=== PATIENT | female | born 1995 | race Caucasian/White ===

== ENCOUNTER 2022-11-30 19:59 | Outpatient (OUT) | payer OTHER, SELFPAY | END 2022-11-30 20:00 | disposition home or self-care (01) | LOC: SLEEP 19:59 | PROVIDERS: PCP Family Medicine; Visit Provider Family Medicine | DX: G47.33 Obstructive sleep apnea (adult) (pediatric) (principal) | CPT/HCPCS: 95810 ==

== ENCOUNTER 2023-01-03 21:00 | Outpatient (OUT) | payer OTHER, SELFPAY | END 2023-01-03 21:01 | LOC: SLEEP 01-12 15:34 | PROVIDERS: PCP Family Medicine; Visit Provider Family Medicine | DX: G47.33 Obstructive sleep apnea (adult) (pediatric) (principal) | CPT/HCPCS: 95811 ==

== ENCOUNTER 2023-04-27 11:08 | Outpatient (OUT) | payer OTHER, SELFPAY ==
--- OUTSIDE RECORDS SUMMARY | 2023-04-27 11:23 | XMS_ITS | CCD ---
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 Name Role Phone Elyse Alvarez Primary Care Provider [phone] ELYSE ALVAREZ Primary Care Unavailable Medications Current Medications Medication Drug Class(es) Dates Sig (Normalized) Sig (Original) acetaminophen 325 mg oral tablet (4 sources) take 2 tablets by mouth every six hours as needed for pain acetaminophen (TYLENOL) 325 MG tablet Take 650 mg by mouth every 6 hours as needed for Pain 0 Active betamethasone 0.5 mg/ml / clotrimazole 10 mg/ml topical cream (2 sources) Azole Antifungal, Corticosteroid Start: 03-06-2019 clotrimazole-betam ethasone (LOTRISONE) 1-0.05 % cream Indications: Acute vaginitis Apply topically 2 times daily. 45 g 1 03/06/2019 Active docusate sodium 100 mg oral capsule (3 sources) Start: 08-23-2018 take 1 capsule by mouth twice daily as needed for constipation docusate sodium (COLACE) 100 MG capsule Indications: Constipation, unspecified constipation type Take 1 capsule by mouth 2 times daily as needed for Constipation 60 capsule 1 08/23/2018 Active norethindrone 0.35 mg oral tablet (1 source) Start: 07-17-2019 take 1 tablet by mouth once daily norethindrone (ORTHO MICRONOR) 0.35 MG tablet Indications: DUB (dysfunctional uterine bleeding) Take 1 tablet by mouth daily 1 tablet 11 07/17/2019 Active omeprazole 20 mg delayed release oral capsule (1 source) Proton Pump Inhibitor Start: 12-13-2018 take 2 capsules by mouth once daily omeprazole (PRILOSEC) 20 MG delayed release capsule Indications: Reflux esophagitis Take 2 capsules by mouth Daily 30 capsule 2 12/13/2018 Active ondansetron 4 mg oral tablet (4 sources) Serotonin-3 Receptor Antagonist Start: 08-07-2018 take 1 tablet by mouth every eight hours as needed for nausea ondansetron (ZOFRAN) 4 MG tablet Indications: Nausea and vomiting of , antepartum Take 1 tablet by mouth every 8 hours as needed for Nausea or Vomiting 30 tablet 2 08/07/2018 Active polyethylene glycol 3350 51324 mg powder for oral solution (4 sources) Osmotic Laxative Start: 10-02-2018 take 17 g by mouth once daily polyethylene glycol (GLYCOLAX) powder Indications: Constipation, unspecified constipation type Take 17 g by mouth daily 850 g 2 10/02/2018 Active MV-Min-Fe Fum-FA-DHA ( 1 PO) (2 sources) MV-Min- Fe Fum-FA-DHA ( 1 PO) Take by mouth 0 Active w/o A Vit-Fe Fum-FA (PRENATA PO) (4 sources) take 1 tablet by mouth once daily w/o A Vit-Fe Fum-FA (PRENATA PO) Take 1 tablet by mouth nightly 0 Active promethazine hydrochloride 25 mg oral tablet (6 sources) Phenothiazine Start: 06-19-2018 take 1 tablet by mouth every six hours as needed for nausea promethazine (PHENERGAN) 25 MG tablet Indications: Nausea Take 1 tablet by mouth every 6 hours as needed for Nausea 30 tablet 1 06/19/2018 Active Problems Active Problems Problem Classification Problem Date Documented Da te Episodic/Chronic Other female genital disorders (1 source) Vaginal discharge; Translations: [Vaginal discharge] Episodic Other and delivery including normal (4 sources) Delivery normal; Translations: [Normal ] Onset: 01-25-2019 01-25-2019 Episodic Residual codes; unclassified (1 source) Gestation period, 36 weeks; Translations: [36 weeks gestation of ] Episodic Past or Other Problems Problem Classification Problem Date Documented Da te Episodic/Chronic distress and abnormal forces of labor (4 sources) Uterine contractions problem; Translations: [Abnormality of forces of labor, unspecified] Onset: 12-11-2018 12-11-2018 Episodic Inflammatory diseases of female pelvic organs (1 source) Acute vaginitis Episodic Residual codes; unclassified (4 sources) Gestation period, 28 weeks; Translations: [28 weeks gestation of ] Onset: 12-11-2018 12-11-2018 Episodic NEGATED: Highlighted row has been ruled out!Unclassified (3 sources) No known active problems Results Test Name Value Interpretation Reference Range Facil sameery [id number] 10-16-2021 SARS-CoV-2 (COVID-19) RNA TERRY+probe Ql (Unsp spec) Normal [place] Comment on above: Performed By: #### C OVID #### [employer] [address] [place], [place] [id number] Grand Scribe: Neeraj Marks MD [facility] [address] [place] [address] [place] [address] Grand Scribe: Chaz Gallo MD #### COVRB #### [address] [place] [address] Grand Scribe: Chaz Gallo MD SARS-CoV-2 (COVID-19) RNA TERRY+probe Ql (Unsp spec) Not detected Normal NOTDET [place] Comment on above: Result Comment: The specimen is NEGATIVE for SARS-CoV-2, the novel coronavirus associated with COVID-19. A negative result does not rule out COVID-19. Selena SARS-CoV-2 for use on the Selena [employer]/8800 [employer] is a real-time RT-PCR test intended for the qualitative detection of nucleic acids from SARS-CoV-2 in clinician-collected nasal, nasopharyngeal, and oropharyngeal swab specimens from individuals who meet COVID-19 clinical and/or epidemiological criteria. Selena SARS-CoV-2 is for use only under Emergency Use Authorization (EUA) in laboratories certified under Clinical Laboratory Improvement Amendments of 1988 (CLIA), 42 U.S.C. ?263a, that meet requirements to perform high or moderate complexity tests. An individual without symptoms of COVID-19 and who is not shedding SARS-CoV-2 virus would expect to have a negative (not detected) result in this assay. Fact sheet for Healthcare Providers: https://www.fda.gov/media/775633/download Fact sheet for Patients: https://www.fda.gov/media/429980/download METHODOLOGY: RT-PCR Performed By: #### C OVID #### [employer] [address] [place] [address] Grand Scribe: Neeraj Marks MD [facility] [address] [place] [address] Grand Scribe: Chaz Gallo MD #### COVRB #### [facility] [address] [place] [address] Grand Scribe: Chaz Gallo MD COVID-19, Rapidon 10-15-2021 SARS-CoV-2 (COVID-19) RNA TERRY+probe Ql (Unsp spec) Not detected Not Detected [facility] Comment on above: Rapid NAAT: The specimen is NEGATIVE for SARS-CoV-2, the novel coronavirus associated with COVID-19. The ID NOW COVID-19 assay is designed to detect the virus that causes COVID-19 in patients with signs and symptoms of infection who are suspected of COVID-19. An individual without symptoms of COVID-19 and who is not shedding SARS-CoV-2 virus would expect to have a negative (not detected) result in this assay. Negative results should be treated as presumptive and, if inconsistent with clinical signs and symptoms or necessary for patient management, should be tested with an alternative molecular assay. Negative results do not preclude SARS-CoV-2 infection and should not be used as the sole basis for patient management decisions. Fact sheet for Healthcare Providers: https://www.fda.gov/media/042702/download Fact sheet for Patients: https://www.fda.gov/media/493786/download Methodology: Isothermal Nucleic Acid Amplification Specimen Description .NASOPHARYNGEAL SWAB [facility] [id number] 10-15-2021 SARS-CoV-2 (COVID-19) RNA TERRY+probe Ql (Unsp spec) Not detected Normal NOTDET [place] Comment on above: Result Comment: Rapid NAAT: The specimen is NEGATIVE for SARS-CoV-2, the novel coronavirus associated with COVID-19. The ID NOW COVID-19 assay is designed to detect the virus that causes COVID-19 in patients with signs and symptoms of infection who are suspected of COVID-19. An individual without symptoms of COVID-19 and who is not shedding SARS-CoV-2 virus would expect to have a negative (not detected) result in this assay. Negative results should be treated as presumptive and, if inconsistent with clinical signs and symptoms or necessary for patient management, should be tested with an alternative molecular assay. Negative results do not preclude SARS-CoV-2 infection and should not be used as the sole basis for patient management decisions. Fact sheet for Healthcare Providers: https://www.fda.gov/media/627209/download Fact sheet for Patients: https://www.fda.gov/media/357536/download Methodology: Isothermal Nucleic Acid Amplification Performed By: #### C OVID #### [facility] [employer] [address] [place], [place] [id number] Grand Scribe: Neeraj Marks MD [address] [place] [address] Grand Scribe: Chaz Gallo MD #### COVRB #### [address] [place] [facility] Grand Scribe: Chaz Gallo MD SARS-CoV-2 (COVID-19) RNA TERRY+probe Ql (Unsp spec) .NASOPHARYNGEAL SWAB Normal [facility] Comment on above: Performed By: #### C OVID #### [employer] [place] [address] Grand Scribe: Neeraj Marks MD [address] [place] [id number] Grand Scribe: Chaz Gallo MD #### COVRB #### [address] [place] [address] Grand Scribe: Chaz Gallo MD VAGINITIS DNA PROBEOrdered B y: Carley Valero on 03-06-2019 Direct Exam Negative [facility] Work Phone: Direct Exam Method of testing is a DNA probe intended for detection and identification of Tiffanie species, Gardnerella vaginalis, and Trichomonas vaginalis nucleic acid in vaginal fluid specimens from patients with symptoms of vaginitis/vaginosis. [employer] Work Phone: Special Requests NOT REPORTED [employer] Phone: Specimen Description .VAGINA [employer] Work Phone: Glucose tolerance, 1 houron 10-30-2018 GLU ADMN Glucola [place], [place] Glucose tolerance screen 50g 85 mg/dL 70 - 135 mg/dL [place] Hemoglobinon 10-30-2018 Hemoglobin (Bld) [Mass/Vol] 12.4 g/dL 11.9 - 15.1 g/dL [place], [place] Encounters Encounter Date Encounter Type Care Provider Facility Start: 10-15-2021 End: 10-16-2021 ambulatory ELYSE [facility] Start: 10-15-2021 End: 10-15-2021 Subsequent hospital visit by physician Ella Covid Screening Schedule [facility] Covid Screening Comment on above: Arrived Start: 03-06-2019 End: 03-06-2019 Subsequent hospital visit by physician Elyse Alvarez MD Work Phone: [facility] Comment on above: Acute vaginitis Start: 12-25-2018 End: 12-25-2018 Subsequent hospital visit by physician Elyse [facility] Comment on above: 36 weeks gestation o f Start: 10-30-2018 End: 10-30-2018 Subsequent hospital visit by physician Elyse [facility] Comment on above: 28 weeks gestation o f Start: 10-11-2018 End: 10-11-2018 Subsequent hospital visit by physician Elyse [facility] Comment on above: Cramping affecting p regnancy, antepartum Start: 10-02-2018 End: 10-02-2018 Subsequent hospital visit by physician Elyse [facility] Comment on above: Vaginal discharge Procedures Date Procedure Procedure Detail Performing Clinician Start: 10-15-2021 COVID-19, RAPID Elyse Alvarez MD Work Phone: Start: 03-06-2019 Iadna tiffanie specie s direct probe tq Carley Valero MANAGER [employer] - CN[employer] Work Phone: Start: 10-30-2018 Blood count hemoglobin Carley Valero Work Phone: Start: 10-30-2018 Blood typing serolog ic rh (d) Carley Valero Work Phone: Start: 10-30-[address] gtt 3 specimens Carley Valero Work Phone: Start: 07-10-2018 Microscopic observat ion [Identifier] in Cervix by Cyto stain Mthz Schedule Plan of Treatment Date Care Activity Detail Author Start: 11-13-2028 DTaP/Tdap/Td vaccine (3 - Td or Tdap) DTaP/Tdap/Td vaccine (3 - Td or Tdap) [facility] Start: 11-13-2028 DTaP/Tdap/Td vaccine (3 - Td) DTaP/Tdap/Td vaccine (3 - Td) [place] Start: 02-25-2026 DTaP/Tdap/Td vaccine (2 - Td) DTaP/Tdap/Td vaccine (2 - Td) [place] Start: 10-08-2021 Influenza vaccination Flu vaccine (# 1) [facility] Start: 07-10-2021 Cervical cancer screen Cervical canc er screen [place], [place] Start: 07-10-2021 Screening for malign ant neoplasm of cervix Pap smear [facility] Start: 02-13-2020 Influenza vaccination Flu vaccine (# 1) [employer] Phone: Comment on above: Postponed from 10/08 (Patient Refused) Start: 04-08-2019 HPV vaccine (1 - Fem jason 2-dose series) HPV vaccine (1 - Female 2-dose series) [employer] Phone: Comment on above: Postponed from 04/25 (Not Indicated) Start: 03-27-2019 Varicella Vaccine (1 of 2 - 2-dose childhood series) Varicella Vaccine (1 of 2 - 2-dose childhood series) [employer] Phone: Comment on above: Postponed from 04/25 (Not Indicated) Start: 01-01-2019 End: 01-01-2019 Routine 01/01/2019 Routine Obstetrics and Gynecology Carley Valero, [employer]GER [employer] CN[employer] [address] [place] [address] [facility] [employer] Start: 11-13-2018 End: 11-13-2018 Routine 11/13/2018 Routine Obstetrics and Gynecology Carley Valero, MANAGER [employer] CNM [address] [place] [address] [facility] [employer] Start: 10-31-2018 End: 10-31-2018 Appointment 10/31/2018 Appointment Infusion Therapy [facility] Start: 10-30-2018 End: 10-30-2018 Routine 10/30/2018 Routine Obstetrics and Gynecology Carley Valero, MANAGER [employer] - CN [address] [place] [id number] [facility] [employer] Start: 10-08-2018 Influenza vaccination Flu vaccine (# 1) [place] Start: 2008 HPV vaccine (1 - Fem jason 3-dose series) HPV vaccine (1 - Female 3-dose series) [place] Start: 2006 Varicella Vaccine (1 of 2 - 13+ 2-dose series) Varicella Vaccine (1 of 2 - 13+ 2-dose series) [place] Start: 2005 Depression Screen Depression Screen [facility] Start: 2004 HPV vaccine (1 - Fem jason 2-dose series) HPV vaccine (1 - Female 2-dose series) [place] Start: 1994 Varicella Vaccine (1 of 2 - 2-dose childhood series) Varicella Vaccine (1 of 2 - 2-dose childhood series) [facility] Start: 1993 COVID-19 Vaccine (#1) COVID-19 Vacci ne (#1) [facility] End: 10-11-2018 Bacteria identified Cx Nom (U) Urine Culture Microbiology Routine Cramping affecting , antepartum 1 Occurrences starting 10/11/2018 until 10/11/2018 [place] Comment on above: 1 Occurrences starti ng 10/11/2018 until 10/11/2018 Bacteria identified Cx Nom (U) Urine Culture Microbiology Routine Cramping affecting , antepartum 10/11/2018 6:05 PM EDT [place] End: 10-15-2021 COVID-19 [facility] [employer] Phone: Comment on above: Once for 1 Occurrenc es starting 10/15/2021 until 10/15/2021 End: 10-02-2018 Culture, Genital Culture, Genital Microbiology Routine Vaginal discharge 1 Occurrences starting 10/02/2018 until 10/02/2018 [place] Comment on above: 1 Occurrences starti ng 10/02/2018 until 10/02/2018 Culture, Genital [place], [place] End: 03-06-2019 Culture, Genital Culture, Genital Microbiology Routine Acute vaginitis 1 Occurrences starting 03/06/2019 until 03/06/2019 [facility] [employer] Phone: Comment on above: 1 Occurrences starti ng 03/06/2019 until 03/06/2019 RHOGAM ANTEPARTUM RHOGAM ANTEPAR KIRBY Blood Bank Routine 28 weeks gestation of 10/30/2018 12:18 PM EDT [place], [place] End: 12-25-2018 Strep B Screen, Vaginal / Rectal Strep B Screen, Vaginal / Rectal Microbiology Routine 36 weeks gestation of 1 Occurrences starting 12/25/2018 until 12/25/2018 [place] Comment on above: 1 Occurrences starti ng 12/25/2018 until 12/25/2018 Strep B Screen, Vagi nal / Rectal Strep B Screen, Vaginal / Rectal Microbiology Routine 36 weeks gestation of 12/25/2018 1:38 PM EST [place], [place] Immunizations Immunization Date Immunization Notes Care Provider Payton brady 11-13-2018 tetanus toxoid, redu kadie diphtheria toxoid, and acellular pertussis vaccine, adsorbed Elyse [employer] [facility] [employer] 02-26-2016 tetanus toxoid, redu kadie diphtheria toxoid, and acellular pertussis vaccine, adsorbed [employer] [facility] [employer] Payers Date Payer Category [facility] [id number] xxxxxxxxxx 2017-Present [address] [address] [place] [address] xxxxxxxxxx [id number] 2017 Unknown [id number] 1993 Unknown [id number] Social History Date Type Detail Facility Start: 06-08-2018 End: 03-06-2019 Tobacco smoking status NHIS Never smoker [place] Start: 06-08-2018 Alcohol intake No [place], [place] Start: 04-30-2018 [place], [place] Start: 1995 Sex Assigned At Not on file [place] Start: 06-08-2018 End: 03-06-2019 Alcohol intake Current non-drinker of alcohol (finding) [place] Start: 06-08-2018 Tobacco use and exposure Smokeless tobacco non-user [employer] Phone: Evaluation note Note Date & Type Note Facility Evaluation note Diagnosis Acute vaginitis Vaginitis and vulvovaginitis, unspecified documented in this encounter [employer] Phone: Assessments Diagnosis Vaginal discharge Leukorrhea, not specified as infective Diagnosis Cramping affecting , antepartum Diagnosis 28 weeks gestation of state, incidental Diagnosis 36 weeks gestation of state, incidental Advance Directives No Advanced Directives Records FoundDocuments on File Type Date 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 Advance Directives and Living Will Power of Access Control Specialist Latest Code Status on File Code Status Date Activated Date Inactivated Comments Full Code 02/24/2016 2:35 AM 02/26/2016 1:14 PM Full Code 02/23/2016 5:58 AM 02/24/2016 2:35 AM Latest Code Status on File Code Status Date Activated Date Inactivated Comments Full Code 01/25/2019 9:16 PM 01/27/2019 4:49 PM Full Code 01/25/2019 5:43 AM 01/25/2019 9:16 PM Full Code 02/24/2016 2:35 AM 02/26/2016 1:14 PM Summary Purpose Family History No Family History Records Found Additional Source Comments Care Teams (unrecognized sec tion and content) Felt Pad Cutter Relationship Specialty Start Date End Date Elyse Alvarez MD [address] [place] [address] PCP - General 10/02/15 INFORMATION SOURCE (unrecogn ized section and content) DATE CREATED AUTHOR 10/17/2021 Pennie shelton FOR RECORDS PERTAINING TO PATIENTS WHO ARE OR HAVE BEEN ENROLLED IN A CHEMICAL DEPENDENCY/SUBSTANCEABUSE PROGRAM, SOME INFORMATION MAY BE OMITTED. This clinical summary was aggregated from multiple sources. Caution should be exercised in using it in the provision of clinical care. This summary normalizes information from multiple sources, and as a consequence, information in this document may materially change the coding, format and clinical context of patient data. In addition, data may be omitted in some cases. CLINICAL DECISIONS SHOULD BE BASED ON THE PRIMARY CLINICAL RECORDS. [employer] [facility]. provides no warranty or guarantee of the accuracy or completeness of information in this document.
[2023-04-27 11:26] LABS: Basophils Percent Auto 0.6 % (0.2-2.0); Eosinophils Absolute Auto 0.1 10^3/uL (0.0-0.7); Eosinophils Percent Auto 1.3 % (0.9-7.0); Hematocrit 40.5 % (36.0-48.0); Hemoglobin 12.6 g/dL (12.0-16.0); Immature Granulocytes Abs Auto 0.02 10^3/uL (0.00-0.03); Immature Granulocytes Pct Auto 0.3 % (0.0-0.5); Lymphocytes Absolute Auto 1.9 10^3/uL (1.2-3.8); Lymphocytes Percent Auto 27.1 % (20.5-60.0); Mean Corpuscular HGB Conc 31.1 g/dL (29.9-35.2); Mean Corpuscular Hemoglobin 24.7 pg (26.7-34.0); Mean Corpuscular Volume 79.3 fL (81.0-99.0); Mean Platelet Volume 11.5 fL (9.5-13.5); Monocytes Absolute Auto 0.4 10^3/uL (0.3-0.8); Monocytes Percent Auto 5.6 % (1.7-12.0); Neutrophils Absolute Auto 4.5 10^3/uL (1.4-6.5); Neutrophils Percent Auto 65.1 % (43.0-75.0); Platelet Count 258 10^3/uL (150-450); Red Blood Count 5.11 10^6/uL (4.20-5.40); Red Cell Distribution Width 15.1 % (11.0-15.0)
[2023-04-27 12:14] LABS: Estimated Average Glucose 94 mg/dL; Glycohemoglobin A1C 4.9 % (4.5-6.2)
[2023-04-27 12:20] LABS: Alanine Aminotransferase 22 U/L (14-59); Albumin Globulin Ratio 0.8; Albumin Level 3.5 g/dL (3.4-5.0); Alkaline Phosphatase 103 U/L (46-116); Anion Gap 11.6; Aspartate Amino Transferase 16 U/L (15-37); BUN Creatinine Ratio 11.1; Bilirubin Total 0.4 mg/dL (0.2-1.0); Calcium 9.3 mg/dL (8.5-10.1); Carbon Dioxide 29.4 mmol/L (21.0-32.0); Chloride 102 mmol/L (98-107); Chol HDL Ratio 4.2; Cholesterol 209 mg/dL (<=200); Estimated GFR (African America >60 (>=60); Estimated GFR (Non-African Ame >60 (>=60); Globulin 4.4 g/dL; Glucose 86 mg/dL (74-106); HDL Cholesterol 50 mg/dL (40-60); Sodium 139 mmol/L (136-145); Thyroid Stimulating Hormone 2.041 uIU/mL (0.358-3.740); Total Protein 7.9 g/dL (6.4-8.2); Triglycerides 125 mg/dL (<=150)
[2023-04-28 11:13] LABS: Insulin 8.4 uIU/mL (2.6-24.9)
== END 2023-04-27 11:09 | disposition home or self-care (01) ==
LOC: LAB 11:11
PROVIDERS: PCP Family Medicine; Visit Provider Family Medicine
DX: R53.83 Other fatigue (principal); G43.909 Migraine, unspecified, not intractable, without status migrainosus
CPT/HCPCS: 36415; 80053; 80061; 83036; 83525; 84436; 84443; 84481; 85025